=== PATIENT | female | born 1995 | race Caucasian/White ===

== ENCOUNTER 2018-01-28 19:55 | Inpatient (IN) ==
[2018-01-28] MEDS ORDERED: LORazepam 0.5 MG Tablet PO ONE (20:11)
[2018-01-28] MEDS ORDERED: QUEtiapine 100 MG Tablet PO ONE (20:27)
[2018-01-28 20:41] LABS: Baso # (Auto) 0.1 th/mm3 (0.0-0.2); Baso % (Auto) 0.4 % (0.0-2.0); Eos # (Auto) 0.3 th/mm3 (0.0-0.4); Eos % (Auto) 2.8 % (0.0-4.0); Hematocrit 42.3 % (35.0-46.0); Hemoglobin 14.8 gm/dL (11.6-15.3); Lymph # (Auto) 2.1 th/mm3 (1.0-4.8); Lymph % (Auto) 16.9 % (9.0-44.0); Mean Corpuscular HGB Conc 34.9 % (32.0-36.0); Mean Corpuscular Hemoglobin 30.2 pg (27.0-34.0); Mean Corpuscular Volume 86.4 fL (80.0-100.0); Mean Platelet Volume 7.2 fL (7.0-11.0); Mono # (Auto) 1.1 th/mm3 (0.0-0.9); Mono % (Auto) 8.4 % (0.0-8.0); Neut % (Auto) 71.5 % (16.0-70.0); Platelet Count 227 th/mm3 (150-450); Red Cell Distribution Width 14.7 % (11.6-17.2); White Blood Count 12.6 th/mm3 (4.0-11.0)
[2018-01-28 21:22] LABS: Alanine Aminotransferase 22 U/L (10-53); Albumin 4.1 g/dL (3.4-5.0); Anion Gap 9 meq/L (5-15); Aspartate Aminotransferase 30 U/L (15-37); Blood Urea Nitrogen 10 mg/dL (7-18); Calcium 9.2 mg/dL (8.5-10.1); Carbon Dioxide 23.8 meq/L (21.0-32.0); Chloride 105 meq/L (98-107); Glomerular Filtration Rate Greater Than 89 mL/min (>89); Glucose,Random 77 mg/dL (74-106); Potassium 3.8 meq/L (3.5-5.1); Sodium 138 meq/L (136-145)
--- NOTE | 2018-01-28 21:36 | ED ---
HPI General Chief Complaint: Psychiatric Symptoms Stated Complaint: Psych ([facility]) Time Seen by Provider: 01/28/18 20:02 Source: patient and police Mode of arrival: other (Police) Limitations: no limitations History of Present Illness HPI Narrative: She presents to our facility under a Jack act by the police department. Patient states that she missed her appointment at the methadone clinic and did not get her dose of medication. Throughout the day she has been vomiting. Patient also states that she wants to kill herself because she is very depressed. Patient denies any history of depression or mental health issues. States that she used to get prescribed Klonopin. complaint: Reports suicidal ideation Onset (ago): hour(s) (2) History of same: No Relieving factors: none Exacerbating factors: none Associated psychiatric symptoms: Reports none Related Data Home Medications Medication Instructions Recorded Confirmed clonazepam [Klonopin] 1 mg PO BID 01/28/18 01/28/18 dextroamphetamine-amphetamine 20 mg PO DAILY 01/28/18 01/28/18 [Adderall] gabapentin 800 mg PO BID 01/28/18 01/28/18 methadone 170 mg PO DAILY 01/28/18 01/28/18 quetiapine [Seroquel] 100 mg PO DAILY 01/28/18 01/28/18 vortioxetine [Trintellix] 10 mg PO DAILY 01/28/18 01/28/18 Allergies Allergy/AdvReac Type Severity Reaction Status Date / Time No Known Allergies Allergy Verified 01/28/18 20:11 Review of Systems ROS: all other systems reviewed are negative [facility] Medical History Medical History Anxiety (Acute) Recent childbirth (Acute) Surgical History Surgical History History of carpal tunnel release (Acute) Social History Social History Substance History: Past History Second Hand Smoke Exposure: No Smoking Status: Current every day smoker Tobacco Type: Cigarettes How Often Do You Have a Drink Containing Alcohol: Monthly or less Recent Travel in [facility] within the Last 8 Weeks: Yes Recent Out of Country Travel within the Last 8 Weeks: No Exam HENMT Head: normocephalic and atraumatic Nose: no nasal discharge and no epistaxis Mouth: moist mucous membranes Eyes Sclera: normal sclerae Pupils: PERRL Neck Neck: trachea midline and no JVD Resp Effort & Inspection: no use of accessory muscles Auscultation: clear to auscultation bilaterally Cardio Rate: regular rate Rhythm: regular rhythm Heart Sounds: no murmurs GI Inspection: non-distended Palpation: soft, no hepatosplenomegaly and nontender Skin General: dry skin (warm) and other (No signs of trauma or self-harm) Neuro General: alert and awake Cranial Nerves: other Speech: speech normal Motor: no movement abnormalities noted Extrem General: normal to inspection, no clubbing, no cyanosis and no edema Psych Mood: congruent mood Affect: normal affect Judgment: judgment good Course Initial Documented Vital Signs Temperature 98.6 F 01/28/18 20:07 Pulse Rate 93 H 01/28/18 20:07 Respiratory Rate 18 01/28/18 20:07 Blood Pressure 132/61 01/28/18 20:07 Pulse Oximetry 98 01/28/18 20:07 Last Documented Vital Signs Temperature 97.5 F L 01/28/18 22:12 Pulse Rate 77 01/28/18 22:12 Respiratory Rate 14 01/28/18 22:12 Blood Pressure 93/51 L 01/28/18 22:12 Pulse Oximetry 97 01/28/18 22:12 Medical Decision Making MDM Narrative Medical decision making narrative: She presents to our facility under a Jack act by the police department. Patient states that she missed her appointment at the methadone clinic and did not get her dose of medication. Throughout the day she has been vomiting. Patient also states that she wants to kill herself because she is very depressed. Patient denies any history of depression or mental health issues. States that she used to get prescribed Klonopin. Blood pressure is 130/67 pulse is 77, temp is 97.5, O2 sat is 97 Physical exam is unremarkable. Patient will receive basic lab work along with a tox screen Lab work is unremarkable Patient is medically cleared at 2300 Await psychiatric evaluation in the morning Medical Screen Exam Complete: Yes Emergency Medical Condition: Yes Differential Diagnosis Differential Diagnosis: Suicidal ideation, multidrug addiction, drug-induced psychosis, anxiety Lab Data Lab results reviewed: Yes I reviewed the patient's lab results. Result diagrams: 01/28/18 20:19 01/28/18 20:19 Lab Results 01/28/18 01/28/18 01/28/18 Range/Units 20:19 20: 20:19 WBC 12.6 H (4.0-11.0) th/mm3 RBC 4.90 (4.00-5.30) mil/mm3 Hgb 14.8 (11.6-15.3) gm/dL Hct 42.3 (35.0-46.0) % MCV 86.4 (80.0-100.0) fL MCH 30.2 (27.0-34.0) pg MCHC 34.9 (32.0-36.0) % RDW 14.7 (11.6-17.2) % Plt Count 227 (150-450) th/mm3 MPV 7.2 (7.0-11.0) fL Neut % (Auto) 71.5 H (16.0-70.0) % Lymph % (Auto) 16.9 (9.0-44.0) % [place] % (Auto) 8.4 H (0.0-8.0) % Eos % (Auto) 2.8 (0.0-4.0) % Baso % (Auto) 0.4 (0.0-2.0) % Neut # (Auto) 9.0 H (1.8-7.7) th/mm3 Lymph # (Auto) 2.1 (1.0-4.8) th/mm3 [place] # (Auto) 1.1 H (0.0-0.9) th/mm3 Eos # (Auto) 0.3 (0.0-0.4) th/mm3 Baso # (Auto) 0.1 (0.0-0.2) th/mm3 WBC Differential . Differential Comment Auto diff final Sodium 138 (136-145) meq/L Potassium 3.8 (3.5-5.1) meq/L Chloride 105 (98-107) meq/L Carbon Dioxide 23.8 (21.0-32.0) meq/L Anion Gap 9 (5-15) meq/L BUN 10 (7-18) mg/dL Creatinine 0.75 (0.50-1.00) mg/dL Estimated GFR Greater than 89 (>89) mL/min Random Glucose 77 (74-106) mg/dL Calcium 9.2 (8.5-10.1) mg/dL Total Bilirubin 0.5 (0.2-1.0) mg/dL AST 30 (15-37) U/L ALT 22 (10-53) U/L Alkaline Phosphatase 135 H (45-117) U/L Total Protein 8.0 (6.4-8.2) g/dL Albumin 4.1 (3.4-5.0) g/dL TSH 0.755 (0.358-3.740) uIU/mL Salicylates 4.2 (2.8-20.0) mg/dL Acetaminophen Less than 2.0 L (10.0-30.0) mcg/mL Serum Alcohol Less than 3 (0-5) mg/dL Discharge Plan Discharge Disposition Patient Disposition: Sign Out(ED Internal Use Only) Discharge Condition Condition: Stable Discharge Details Diagnosis: Drug-induced psychotic disorder, Suicidal ideation Physicians Team ED Provider: Kerri Jack ED Midlevel Provider: Soledad Bravo Primary Care Provider: Primary Care Emmanuelle Silva Rxs /Orders / Referrals /Forms Prescriptions: No Action clonazepam [Klonopin] 1 mg Tablet 1 mg PO BID RF: 0 quetiapine [Seroquel] 100 mg Tablet 100 mg PO DAILY RF: 0 gabapentin 800 mg Tablet 800 mg PO BID RF: 0 dextroamphetamine-amphetamine [Adderall] 20 mg Tablet 20 mg PO DAILY RF: 0 methadone 10 mg/mL Concentrate 170 mg PO DAILY RF: 0 vortioxetine [Trintellix] 10 mg Tablet 10 mg PO DAILY RF: 0 Status ED Status: Medically Cleared
[2018-01-28 22:21] LABS: Alkaline Phosphatase 135 U/L (45-117); Thyroid Stimulating Hormone 0.755 uIU/mL (0.358-3.740)
[2018-01-29 09:13] LABS: Amphetamine Screen,Urine Neg (Neg); Barbiturate Screen,Urine Neg (Neg); Cannabinoid Screen,Urine Pos (Neg); Cocaine Screen,Urine Pos (Neg)
[2018-01-29 09:14] LABS: Opiate Screen,Urine Neg (Neg)
[2018-01-29] MEDS ORDERED: Benztropine Inj 2 MG/2 ML Ampul IM PRN (12:30)
[2018-01-29] MEDS ORDERED: Aluminum/Magnesium/Simethacone Susp 30 ML UDC PO PRN (12:30)
[2018-01-29] MEDS ORDERED: Loperamide 2 MG Capsule PO PRN (12:34)
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
[2018-01-29] MEDS ORDERED: Haloperidol Inj 5 MG/ML Ampul IV.PUSH PRN (12:43)
[2018-01-29] MEDS ORDERED: Baclofen 10 MG Tablet PO SCH (13:00)
[2018-01-29] MEDS: Methadone Liq 10 MG/10 ML UDC PO SCH (14:29)
[2018-01-29] MEDS: Senna/Docusate Sodium 8.6/50 MG Tablet PO SCH (20:21)
[2018-01-29] MEDS: LORazepam 1 MG Tablet PO PRN (20:21)
[2018-01-29] MEDS ORDERED: Melatonin 5 MG Tablet PO PRN (21:00)
[2018-01-30] MEDS: LORazepam 1 MG Tablet PO PRN (03:59)
[2018-01-30 10:53] LABS: Baso % (Auto) 0.8 % (0.0-2.0); Eos # (Auto) 0.1 th/mm3 (0.0-0.4); Eos % (Auto) 2.4 % (0.0-4.0); Hematocrit 42.5 % (35.0-46.0); Hemoglobin 14.8 gm/dL (11.6-15.3); Lymph # (Auto) 2.2 th/mm3 (1.0-4.8); Lymph % (Auto) 38.4 % (9.0-44.0); Mean Corpuscular HGB Conc 34.8 % (32.0-36.0); Mean Corpuscular Hemoglobin 30.4 pg (27.0-34.0); Mean Corpuscular Volume 87.3 fL (80.0-100.0); Mean Platelet Volume 6.9 fL (7.0-11.0); Mono # (Auto) 0.8 th/mm3 (0.0-0.9); Mono % (Auto) 14.2 % (0.0-8.0); Neut # (Auto) 2.6 th/mm3 (1.8-7.7); Neut % (Auto) 44.2 % (16.0-70.0); Platelet Count 243 th/mm3 (150-450); Red Blood Count 4.87 mil/mm3 (4.00-5.30); Red Cell Distribution Width 14.3 % (11.6-17.2); White Blood Count 5.8 th/mm3 (4.0-11.0)
[2018-01-30 11:17] LABS: Albumin 4.2 g/dL (3.4-5.0)
[2018-01-30 11:19] LABS: Chol/HDL Ratio 4.13 Ratio; HDL Cholesterol 63.9 mg/dL (40.0-60.0); Total Protein 8.1 g/dL (6.4-8.2)
--- NOTE | 2018-01-30 12:39 | P.PNPSY ---
Subjective Chief Complaint: Jack act Remarks: Patient seen and examined with nurse. Chart reviewed. Case discussed with nursing staff. On my examination today, the patient presents as somewhat dramatic with cluster B personality traits. She denies any SI or HI. She is perseverative on receiving her methadone, which is on its way from pharmacy. She is also perseverative on remaining on her outpatient stimulant and benzodiazepine. I have recommended to the patient that we pursue medication management while she is inpatient to try to find non-habit forming alternatives to these agents, given her history of substance use disorder, but the patient seems wedded to them. She also reports that she takes Seroquel 100 mg at bedtime for sleep and gabapentin 800 mg twice daily for neuropathic pain. No side effects from medications. Besides some mild complaints related to opiate withdrawal, no physical complaints. Vital Signs Temp Pulse Resp BP Pulse Ox 01/30/18 05:47 98.7 F 63 16 103/62 95 01/29/18 14:14 81 18 119/61 97 Intake and Output 01/29/18 01/30/18 01/30/18 22:59 06:59 14:59 Other: Weight 63.5 kg Weight On Admission 63.5 kg Laboratory Results - last 24 hr 01/28/18 01/30/18 01/30/18 20:19 10:27 10:27 WBC 5.8 RBC 4.87 Hgb 14.8 Hct 42.5 MCV 87.3 MCH 30.4 MCHC 34.8 RDW 14.3 Plt Count 243 MPV 6.9 L Neut % (Auto) 44.2 Lymph % (Auto) 38.4 [place] % (Auto) 14.2 H Eos % (Auto) 2.4 Baso % (Auto) 0.8 Neut # (Auto) 2.6 Lymph # (Auto) 2.2 [place] # (Auto) 0.8 Eos # (Auto) 0.1 Baso # (Auto) 0.0 WBC Differential . Differential Comment Auto diff final Total Bilirubin 0.5 Direct Bilirubin 0.1 Indirect Bilirubin 0.4 AST 27 ALT 23 Alkaline Phosphatase 128 H Total Protein 8.1 Albumin 4.2 Triglycerides 114 Cholesterol 264 H LDL Cholesterol, Calc 177 H HDL Cholesterol 63.9 H Cholesterol/HDL Ratio 4.13 Beta HCG, Qual Less than 1.0 Labs reviewed. Anemia resolved. Review of Systems All other systems reviewed negative except as stated in HPI Mental Status Examination Appearance: Appropriate Consciousness: Alert Orientation: x4 Motor Activity: Normal gait, Other (No motor abnormalities noted. No objective signs of opiate or GABAergic withdrawal noted.) Speech: Unremarkable Language: Adequate Fund of Knowledge: Adequate Attention and Concentration: Adequate Memory: Unremarkable (Grossly intact on clinical exam) Mood: Anxious Affect: Anxious Thought Process & Associations: Intact Thought Content: Preoccupations (With discharge) Hallucination Type: None Delusion Type: None Suicidal Ideation: No (Remains unclear whether patient is reliable to contract for safety) Suicidal Plan: No Suicidal Intention: No Homicidal Ideation: No Homicidal Plan: No Homicidal Intention: No Insight: Poor Judgment: Impulsive Assessment and Plan - Assessment (1) Adjustment disorder with mixed disturbance of emotions and conduct Code(s): F43.25 - Adjustment disorder with mixed disturbance of emotions and conduct Status: Acute (2) Polysubstance dependence Code(s): F19.20 - Other psychoactive substance dependence, uncomplicated Status: Acute - Plan Plan: Add Seroquel 100 mg at bedtime. I have reviewed the metabolic and motor side effects of antipsychotic therapy with patient and suggested to her that we might work to find a better hypnotic for her, but she wishes to continue the Seroquel for now. Resume gabapentin 800 mg twice daily. Continue methadone as ordered. Check EKG for QTC. Continue other medications and care as ordered. Continue to monitor on the inpatient unit. Justification for Continued Inpatient Stay: Monitoring for impairment in safety. Discharge Planning: Pending outcome of observation Request Healthcare Surrogate/Guardian Advocate?: No
[2018-01-30] MEDS: Methadone Liq 10 MG/10 ML UDC PO SCH (13:22)
[2018-01-30] MEDS: Senna/Docusate Sodium 8.6/50 MG Tablet PO SCH ×2 (13:23→21:20)
--- NOTE | 2018-01-30 13:26 | P.PNPSY ---
Subjective Chief Complaint: Jack act Remarks: This is a request for second opinion. Admission note was reviewed and I agree with the history. Patient was seen and case was discussed with nursing. Patient admits to making a suicidal statement when she realized she would not get her methadone for the day. She remains very labile and hysterical. Her treating psychiatrist today confirmed her methadone which she will restart today. At this time she says she denies suicidal or homicidal ideation intent or plan. Review of Systems All other systems reviewed negative except as stated in HPI Mental Status Examination Appearance: Disheveled Consciousness: Alert Orientation: x4 Motor Activity: Normal gait Speech: Unremarkable Language: Adequate Fund of Knowledge: Adequate Attention and Concentration: Adequate Memory: Unremarkable (Grossly intact on clinical exam) Mood: Other (Denies issues with mood) Affect: Anxious, Other (Dysphoric) Thought Process & Associations: Intact Thought Content: Preoccupations Hallucination Type: None Delusion Type: None Suicidal Ideation: No (Unclear whether patient is reliable to contract for safety) Suicidal Plan: No Suicidal Intention: No Homicidal Ideation: No Homicidal Plan: No Homicidal Intention: No Insight: Poor Judgment: Impulsive Assessment and Plan - Assessment (1) Adjustment disorder with mixed disturbance of emotions and conduct Code(s): F43.25 - Adjustment disorder with mixed disturbance of emotions and conduct Status: Acute (2) Polysubstance dependence Code(s): F19.20 - Other psychoactive substance dependence, uncomplicated Status: Acute - Plan Plan: Continue current treatment plan. I agree with the first opinion to continue petition. Criteria include suicidal ideation. Justification for Continued Inpatient Stay: Patient would decompensate in a less restrictive setting Request Healthcare Surrogate/Guardian Advocate?: No
[2018-01-30 13:27] LABS: Hemoglobin A1c 5.4 % (4.3-6.0)
[2018-01-30] MEDS: Gabapentin 400 MG Capsule PO SCH ×3 (15:34→21:20)
[2018-01-30] MEDS ORDERED: QUEtiapine 100 MG Tablet PO SCH (21:00)
[2018-01-31] MEDS: Gabapentin 400 MG Capsule PO SCH (08:54)
[2018-01-31] MEDS: Senna/Docusate Sodium 8.6/50 MG Tablet PO SCH (08:54)
[2018-01-31] MEDS: Methadone Liq 10 MG/10 ML UDC PO SCH (08:55)
--- NOTE | 2018-01-31 12:27 | P.DSPSY ---
Psychiatry Discharge Summary Inpatient Psychiatric care?: Yes Advance Directives: No Mental Health Advance Directive: No Health Care Proxy: No - Admission Admission Date: January 29, 2018 12:39 - Admission Diagnosis (1) Adjustment disorder with mixed disturbance of emotions and conduct Code(s): F43.25 - Adjustment disorder with mixed disturbance of emotions and conduct (2) Polysubstance dependence Code(s): F19.20 - Other psychoactive substance dependence, uncomplicated Brief History: Ms. Eckert is a 22-year-old female with a reported history of opiate use disorder who presents under a Jack act by law enforcement alleging that the patient told her mother that she wanted to kill herself and tried to jump out of a moving vehicle. A witness statement from patient's mother is appended and reads in part "I am concerned about my daughter's life. She has stated that she would kill herself while driving tried to jump out of a moving car." Reviewing the electronic medical record, I see no previous psychiatric contact within our system. Patient seen and examined in J pod. Chart reviewed. Case discussed with nurse in J pod who has obtained collateral information from patient's father to the effect that he remains concerned about patient's safety. On my evaluation today , the patient presents in mild to moderate opiate withdrawal with lacrimation and rhinorrhea noted. Patient insists that she is here because "I missed my methadone clinic." Patient insists that her parents are lying regarding her conduct prior to admission. She believes that they are angry at her "because I was yelling at them because they would not take me to the clinic." She alleges that her father is very controlling. The patient adamantly denies any suicidal or homicidal ideation saying that she wants to live for her son. She denies any subjective anxiety or depression or associated symptoms but does appear to be quite anxious and dysphoric, although this may be an effect of withdrawal. She denies any hallucinations or other psychotic material. Remainder of the psychiatric ROS is negative. Besides complaints related to withdrawal, no other acute physical complaints. Tobacco Use In Past 30 Days: Yes How Often Do You Have a Drink Containing Alcohol: Never Hospital Course: The patient was admitted to a locked, inpatient psychiatric unit. Appropriate precautions were in place throughout patient's hospital stay. Patient was seen and examined on the unit by psychiatry and also visited by counselor. Home psychotropic medications and home methadone were largely continued, although stimulant was held due to lack of clear indication and Trintellix was not prescribed as it is not available on our formulary. The patient was resistant to making changes to her psychotropic medication regimen, particularly with regard to the controlled substances that she has been prescribed by outpatient provider. I have strongly recommended that patient follow up with mental health provider and discuss with them how to transition to less habit-forming alternative agents. There was no evidence of any suicidality or homicidality on the inpatient unit. There was no evidence of self-care deficit. Patient was noted to be fairly attention-seeking with prominent cluster B, chiefly borderline, personality traits. On the day of discharge: Patient seen and examined with nurse, Tamie. Chart reviewed. Case discussed with nursing staff. No behavioral issues noted overnight. Case discussed with counselor. Counselor has obtained collateral information from the patient's father to the effect that parents are comfortable receiving the patient home today and do not have safety concerns regarding the patient's discharge. Counselor has instructed family to secure the home environment of potential means of harm to self/others. On my examination today, the patient is requesting discharge from the inpatient psychiatric unit today. She does say that "coming here [i.e. to the hospital] did help me." She denies any suicidal or homicidal ideation, intent or plan. I can elicit no depressive or hypomanic/manic symptoms. She denies any audiovisual hallucinations. I can elicit no delusional material. There is no evidence of impairment in reality construction. She continues to exhibit borderline personality style. She denies side effects from medications. She has no physical complaints. She denies symptoms of withdrawal. Patient did receive 4 mg of Ativan by CIWA scale overnight and plans to resume outpatient Klonopin after discharge, which will obviate the need for supplemental benzodiazepine after discharge. Weighing the acute, chronic, and protective factors and based on the available evidence, I comprehensive ophthalmologist that the patient no longer meets criteria for involuntary psychiatric hospitalization at this time. There is no evidence of imminent risk of harm to self or others, nor is there evidence of self-care deficit to substantiate ongoing involuntary psychiatric hospitalization. Patient's borderline personality style confers chronic but not acute or imminent risk, and this risk would not be ameliorated and may in fact be worsened by ongoing psychiatric hospitalization. Likewise, her substance use disorder is a chronic risk factor, and the patient is undergoing methadone treatment. As noted above , I have encouraged to the patient to work with outpatient providers to seek less habit forming alternatives to her existing controlled medications other than the methadone. Patient will be discharged today with psychiatric follow- up as arranged by counselor. Patient is also to follow-up with primary care. I have counseled the patient regarding warning signs for need to return to the psychiatric emergency room as part of a general safety plan. With the benefit of observation on the inpatient unit, it is suspected that presenting behavioral disturbance was a consequence of distress at withdrawal symptoms (now resolved) in the setting of dramatic, borderline personality style. A decompensated mood, anxiety or psychotic disorder is not suspected in this patient at this time. - Discharge Discharge Date: 01/31/18 - Discharge Diagnosis (1) Borderline personality disorder Diagnosis: Principal Code(s): F60.3 - Borderline personality disorder Status: Suspected (2) Polysubstance dependence Diagnosis: Secondary Code(s): F19.20 - Other psychoactive substance dependence, uncomplicated Status: Chronic Discharge Disposition: Home - Discharge Instructions Discharge Diet: Regular Diet Activities You Can Perform: Weight Bearing As Tolerat - Discharge Time <= 30 minutes Mental Status Examination Appearance: Appropriate Consciousness: Alert Orientation: x4 Motor Activity: Normal gait, Other (No signs of withdrawal noted. No other motor abnormalities noted.) Speech: Unremarkable Language: Adequate Fund of Knowledge: Adequate Attention and Concentration: Adequate Memory: Unremarkable (Remains grossly intact on clinical exam) Mood: Appropriate Affect: Appropriate Thought Process & Associations: Intact, Logical, Goal directed, Linear Thought Content: Appropriate Hallucination Type: None Delusion Type: None Suicidal Ideation: No Suicidal Plan: No Suicidal Intention: No Homicidal Ideation: No Homicidal Plan: No Homicidal Intention: No Insight: Fair Judgment: Impulsive (Chronically impulsive in the setting of borderline personality style) Discharge/Advance Care Plan - Results Vital Signs: Last Vital Signs Temp 98.4 F 01/31/18 05:17 Pulse 76 01/31/18 05:17 Resp 16 01/31/18 05:17 BP 92/50 L 01/31/18 05:17 Pulse Ox 94 L 01/31/18 05:17 Lab Results: Abnormal Lab Results 01/30/18 10:27 Hemoglobin A1c 5.4 Laboratory Results Hemoglobin A1c 5.4 % (4.3-6.0) 01/30/18 10:27 Triglycerides 114 mg/dL (42-150) 01/30/18 10:27 Cholesterol 264 mg/dL (120-200) H 01/30/18 10:27 LDL Cholesterol, Calc 177 mg/dL (0-99) H 01/30/18 10:27 HDL Cholesterol 63.9 mg/dL (40.0-60.0) H 01/30/18 10:27 TSH 0.755 uIU/mL (0.358-3.740) 01/28/18 20:19 Summary of Procedures: None done. Pending Results: None - Medications Number of antipsychotic medications at discharge: 1 - Discharge Care Plan Goals to Promote Your Health: * To prevent worsening of your condition and complications * To maintain your health at the optimal level Directions to Meet Your Goals: Take your medications as prescribed Follow your dietary instruction Follow activity as directed Keep your appointments as scheduled Take your immunizations and boosters as scheduled If your symptoms worsen call your PCP, if no PCP go to Urgent Care Center or Emergency Room For 07/09 questions related to your inpatient stay or results of tests pending at discharge, please contact Dr. Remington Hudson MD at Smoking is Dangerous to Your Health. Avoid second hand smoking
--- NOTE | 2018-01-31 12:28 | ECG ---
Date Performed: 01/30/2018 Time Performed: 14:27:15 PTAGE: 22 years EKG: Sinus rhythm WITH SINUS ARRHYTHMIA NORMAL ECG NO PREVIOUS TRACING DOCTOR: Tam Ventura Interpretating Date/Time 01/31/2018 12:25:12
== END 2018-01-31 14:50 | disposition home or self-care (01) ==
LOC: NEPJ 19:55 → NEDA 01-29 12:39 → H260 01-29 14:38
PROVIDERS: ADMIT Psychiatry & Neurology Psychiatry; ATTEND Psychiatry & Neurology Psychiatry